=== PATIENT | female | born 1980 | race Caucasian/White ===

== ENCOUNTER 2025-08-30 20:44 | Emergency (ER) | payer BC, SELFPAY ==
[2025-08-30 20:46] VITALS: BP 171/107
[2025-08-30 21:03] LABS: Hematocrit 45.7 % (37.0-47.0); Hemoglobin 15.5 g/dL (12.0-16.0); Mean Corp Hgb Conc. 33.9 g/dL (33.0-37.0); Mean Corpuscular Volume 90.5 fL (81.0-99.0); Nucleated Red Blood Cells % 0 %; Platelet Count 280 10^3/uL (130-400); Red Cell Dist. Width 12.3 % (11.5-14.5)
[2025-08-30 21:17] LABS: Albumin 4.8 g/dl (3.5-5.0)
[2025-08-30 21:27] LABS: ALT (SGPT) 16 U/L (0-35); AST (SGOT) 21 U/L (14-36); Alkaline Phosphatase 56 U/L (38-126); Blood Urea Nitrogen 11 mg/dl (7-17); Calcium 10.0 mg/dl (8.4-10.2); Carbon Dioxide 26 mmol/L (22-30); Chloride 104 mmol/L (98-107); Glucose 87 mg/dl (70-99); Lipase 102 U/L (23-300); Potassium 3.9 mmol/L (3.5-5.1); Sodium 139 mmol/L (135-145); Total Protein 7.4 g/dl (6.3-8.2); eGFR > 60.00
[2025-08-31] VITALS: BP 131/91
[2025-08-31] MEDS: TORADOL 15 MG IV (01:32)
[2025-08-31 01:45] LABS: HCG, Serum Qualitative Screen Negative
--- NOTE | 2025-08-31 01:50 | ED.GENMED ---
Addendum entered and electronically signed by Sumanth Mueller Jr., PA-C 09/02/25 08:24:
Patient's urine culture was reviewed. Case was discussed with urology that recommended outpatient follow-up but not starting antibiotics due to the likelihood that this is a contaminant rather than invasive bacteria. Patient was contacted who is
not having any progressive symptoms or signs of an infection
Original Note:
History of Present Illness
<DO Steph Bradshaw Last Filed: 08/31/25 01:51>
General
Chief Complaint: Abdominal Pain
Time Seen by Provider: 08/31/25 00:37
<Sumanth Mueller Jr., PA-C - Last Filed: 08/31/25 17:32>
General
Source: patient
Exam Limitations: none
Nursing documentation reviewed up to this point in time: agreed with
History of Present Illness
History of Present Illness:
44-year-old female past medical history of hypertension presenting to the emergency department today with concerns of left lower quadrant abdominal pain associated nausea seem to occur prior to arrival. Denies any change in bowel movements or
urination denies any vomiting no fevers.
Past History
<DO Steph Bradshaw Last Filed: 08/31/25 01:51>
Past History
ED Past Medical History: None
ED Past Surgical History: None
Social History
Tobacco: Non-smoker
Alcohol: Occasional
Personal:
Living: with family
Review of Systems
<PRASHANT Henry Jr. Last Filed: 08/31/25 17:32>
Review of Systems
Allergies reviewed?: Yes
All Other Systems: ROS reviewed and negative except as documented in HPI and ROS
Phy Exam
<Sumanth Mueller Jr., PA-C - Last Filed: 08/31/25 17:32>
Physical Exam
Physical Exam:
GENERAL: Alert , in no apparent distress
EYE: pupils equal and reactive
NECK: Supple, no significant adenopathy.
ENT: o/p clr, mmm.
CARDIAC: Regular rate and rhythm .
LUNGS: Clear breath sounds bilaterally, no acute respiratory distress, no wheezes/rales/rhonchi
ABDOMEN: Left lower quadrant abdominal pain otherwise soft abdomen
NEUROLOGICAL: Alert and oriented, no focal neuro deficits
SKIN: Warm and dry, skin intact.
MUSCULOSKELETAL: No edema, well perfused.
PSYCH: Normal and appropriate interaction.
Course
<Naye Joseph, DO - Last Filed: 08/31/25 01:51>
Orders/Labs/Results
Orders:
Orders
08/30/25 20:50
Urinalysis Reflex To Culture Urgent
Date Specimen was Collected: 08/30/25
Time Specimen was Collected: 20:50
US Pelvis W Transvag Combined Urgent
Reason For Exam: pain
08/30/25 20:56
Complete Blood Count/With Diff Urgent
Comprehensive Metabolic Panel Urgent
HCG, Serum Qualitative Screen Urgent
Comment: ADD ON
Lipase Urgent
08/31/25 00:57
CT Abd/Pel (IV only)-DH only Urgent
Comment:
Reason For Exam: llq pain ongoing
08/31/25 00:58
Ketorolac [Toradol] 15 mg IV NOW STA
08/31/25 00:59
Add On- LAB Urgent
Tests Added?: serum hcg qual
08/31/25 03:08
Urine Microscopic Reflex Cult Urgent
Urine Culture Urgent
EITAN Source: U
Specimen Description:
Date Specimen was Collected: 08/30/25
Time Specimen was Collected: 20:50
Abnormal Lab Results
08/30/25 08/31/25
20:56 03:08
Eosinophils % 8.1 H %
(0-6)
Ur Occult Blood Reflex 1+ A
(Negative)
Leukocyte Esterase Rfl 1+ A
(Negative)
Urine Albumin (Reflex) 2+ A
(Neg - Trace)
08/30/25 20:56
08/30/25 20:56
Vital Signs
Initial and Last Documented VS:
Initial Vital Signs
Temp Pulse Resp BP Pulse Ox
97.6 F 86 18 171/107 100
08/30/25 20:46 08/30/25 20:46 08/30/25 20:46 08/30/25 20:46 08/30/25 20:46
Last Documented Vital Signs
Temp Pulse Resp BP Pulse Ox
97.6 F 86 18 130/80 100
08/30/25 20:46 08/30/25 20:46 08/30/25 20:46 08/31/25 04:23 08/31/25 01:51
<Sumanth Mueller Jr., PA-Olman - Last Filed: 08/31/25 17:32>
Orders/Labs/Results
Orders:
Orders
08/30/25 20:50
Urinalysis Reflex To Culture Urgent
Date Specimen was Collected: 08/30/25
Time Specimen was Collected: 20:50
US Pelvis W Transvag Combined Urgent
Reason For Exam: pain
08/30/25 20:56
Complete Blood Count/With Diff Urgent
Comprehensive Metabolic Panel Urgent
HCG, Serum Qualitative Screen Urgent
Comment: ADD ON
Lipase Urgent
08/31/25 00:57
CT Abd/Pel (IV only)-DH only Urgent
Comment:
Reason For Exam: llq pain ongoing
08/31/25 00:58
Ketorolac [Toradol] 15 mg IV NOW STA
08/31/25 00:59
Add On- LAB Urgent
Tests Added?: serum hcg qual
08/31/25 03:08
Urine Microscopic Reflex Cult Urgent
Urine Culture Urgent
EITAN Source: U
Specimen Description:
Date Specimen was Collected: 08/30/25
Time Specimen was Collected: 20:50
Abnormal Lab Results
08/30/25 08/31/25
20:56 03:08
Eosinophils % 8.1 H %
(0-6)
Ur Occult Blood Reflex 1+ A
(Negative)
Leukocyte Esterase Rfl 1+ A
(Negative)
Urine Albumin (Reflex) 2+ A
(Neg - Trace)
08/30/25 20:56
08/30/25 20:56
Vital Signs
Initial and Last Documented VS:
Initial Vital Signs
Temp Pulse Resp BP Pulse Ox
97.6 F 86 18 171/107 100
08/30/25 20:46 08/30/25 20:46 08/30/25 20:46 08/30/25 20:46 08/30/25 20:46
Last Documented Vital Signs
Temp Pulse Resp BP Pulse Ox
97.6 F 86 18 130/80 100
08/30/25 20:46 08/30/25 20:46 08/30/25 20:46 08/31/25 04:23 08/31/25 01:51
<Kp Welch, DO - Last Filed: 08/31/25 03:56>
Orders/Labs/Results
Orders:
Orders
08/30/25 20:50
Urinalysis Reflex To Culture Urgent
Date Specimen was Collected: 08/30/25
Time Specimen was Collected: 20:50
US Pelvis W Transvag Combined Urgent
Reason For Exam: pain
08/30/25 20:56
Complete Blood Count/With Diff Urgent
Comprehensive Metabolic Panel Urgent
HCG, Serum Qualitative Screen Urgent
Comment: ADD ON
Lipase Urgent
08/31/25 00:57
CT Abd/Pel (IV only)-[facility] only Urgent
Comment:
Reason For Exam: llq pain ongoing
08/31/25 00:58
Ketorolac [Toradol] 15 mg IV NOW STA
08/31/25 00:59
Add On- LAB Urgent
Tests Added?: serum hcg qual
08/31/25 03:08
Urine Microscopic Reflex Cult Urgent
Urine Culture Urgent
EITAN Source: U
Specimen Description:
Date Specimen was Collected: 08/30/25
Time Specimen was Collected: 20:50
Abnormal Lab Results
08/30/25 08/31/25
20:56 03:08
Eosinophils % 8.1 H %
(0-6)
Ur Occult Blood Reflex 1+ A
(Negative)
Leukocyte Esterase Rfl 1+ A
(Negative)
Urine Albumin (Reflex) 2+ A
(Neg - Trace)
08/30/25 20:56
08/30/25 20:56
Vital Signs
Initial and Last Documented VS:
Initial Vital Signs
Temp Pulse Resp BP Pulse Ox
97.6 F 86 18 171/107 100
08/30/25 20:46 08/30/25 20:46 08/30/25 20:46 08/30/25 20:46 08/30/25 20:46
Last Documented Vital Signs
Temp Pulse Resp BP Pulse Ox
97.6 F 86 18 130/80 100
08/30/25 20:46 08/30/25 20:46 08/30/25 20:46 08/31/25 04:23 08/31/25 01:51
<Sumanth Mueller Jr., PA-C - Last Filed: 08/31/25 17:32>
MDM/Problems Addressed
MDM/Problems Addressed:
44-year-old female presenting to the emergency department today with concerns of sharp left lower quadrant abdominal pain that occurred prior to arrival. Associated nausea. Here blood pressure elevated otherwise vital signs are normal. Patient
did have reproducible tenderness to the left lower quadrant otherwise soft abdomen. Labs were obtained without acute abnormalities. Initial pelvic ultrasound showing a right sided complex ovarian cyst which does not correlate the patient's symptom
location. She was notified of this and will follow-up.
<Naye Joseph, DO - Last Filed: 08/31/25 01:51>
*Pulse Oximetry
SaO2: 100
Oxygen Mode of Delivery: Room air
<Sumanth Mueller Jr., PA-C - Last Filed: 08/31/25 17:32>
*Pulse Oximetry
Patient hypoxic: no (100)
*Critical Care Note
Total Time (30-74mins, 75-104mins- exclusive of procedures): Not Applicable
ED Attending Note
<Naye Joseph DO - Last Filed: 08/31/25 01:51>
-
Portions of this chart may have been created with voice recognition software.� Occasional wrong word or��sound alike� substitutions may have occurred due to the inherent limitations of voice recognition software.
<Kp Welch DO - Last Filed: 08/31/25 03:56>
ED Attending Note
Patient seen and examined by attending physician: Yes
ED Attending Note:
Note:
CHIEF COMPLAINT(S)
Kidney stone.
HISTORY OF PRESENT ILLNESS
The patient is a 44-year-old female presenting with a diagnosed 5-millimeter kidney stone, currently in the process of passing. The patient reports that her urine appears normal at present, with no signs of infection or the need for antibiotic
treatment. The plan is to monitor for potential complications such as fever, chills, chest pain, shortness of breath, or worsening pain, which would warrant immediate attention.
PHYSICAL EXAM
General: Alert, no acute distress.
Skin: Warm, dry.
Head: Normocephalic, atraumatic.
Neck: Supple, trachea midline.
Eye, Ears, Nose, Mouth, and Throat: Oral mucosa moist.
Cardiovascular: Normal peripheral perfusion, no edema.
Respiratory: Respirations are non-labored.
Gastrointestinal: Abdomen nondistended.
Back: Normal range of motion, normal alignment.
Musculoskeletal: Normal range of motion, normal strength.
Neurological: Alert and oriented to person, place, time, and situation, no focal neurological deficit observed.
Psychiatric: Cooperative, appropriate mood & affect.
PLAN
The patient will be provided with contact information for a urologist in the event that the kidney stone does not pass on its own. The patient was advised to seek immediate care if symptoms such as fever, chills, chest pain, shortness of breath, or
worsened pain occur.
DIFFERENTIAL DIAGNOSIS
The Differential Diagnosis includes, in no particular order and is not limited to:
1. Ureteral stone
2. Urinary tract infection
3. Renal colic
4. Obstructive uropathy
5. Pyelonephritis
6. Abdominal aortic aneurysm
7. Diverticulitis
8. Musculoskeletal back pain
9. Biliary colic
10. Ischemic bowel
Discharge Plan
Departure
Patient Disposition: Home (Routine Discharge)
Date of Disposition: 08/31/25
Time of Disposition: 03:56
Patient with high blood pressure during this ER visit?: No
Condition: Good
Covid-19: Not Applicable
Discharge Problem:
Calculus, ureteral
Instructions: Kidney Stones (DC)
Prescriptions:
New
tamsulosin [Flomax] 0.4 mg capsule
0.4 mg PO DAILY Qty: 7 0RF
ondansetron 4 mg tablet,disintegrating
4 mg PO Q6H PRN (Reason: nausea and vomiting) Qty: 7 0RF
ibuprofen 600 mg tablet
600 mg PO Q8H PRN (Reason: Pain) Qty: 10 0RF
No Action
No Current Medications
ibuprofen 800 MG tablet
800 mg PO Q6HPRN PRN (Reason: pain) Qty: 0 0RF
diazepam 5 MG tablet
5 mg PO TIDPRN PRN (Reason: muscle spasm) Qty: 14 0RF
Referrals:
Taye Waldron MD [Active, Urology] - Follow up in 1 week
UNKNOWN - PT DOES,NOT KNOW [Family Provider]
Activity Restrictions/Additional Instructions:
You came to the emergency department today with concerns of left lower abdominal discomfort. You are found to have a kidney stone that is likely responsible for your symptoms. Please drink plenty of fluids and take the prescribed medications to
help with passage of the stone and follow-up closely with urology. You should be reassessed and discussed your CT findings. Return for any worsening, new or concerning symptoms.
Interventions
Interventions:
*Risk Screen - Suicide Last Done: 08/30/25 20:46
*General Assessment Last Done: 08/31/25 04:24
*Neglect/Abuse Screening Last Done: 08/30/25 20:46
*ED- Fall Risk Assessment Last Done: 08/31/25 04:24
*ED COVID-19 Vaccine History Last Done: 08/31/25 04:24
*ED Influenza Vaccine History Last Done: 08/31/25 04:24
*Nursing Disposition Last Done: 08/31/25 04:24
QF-Zdyejf-Rzossevbcq Assessment Last Done: 08/31/25 01:37
Discharge Date and Time
Discharge Date/Time: 08/31/25 04:26
Print Language: DANISH
[2025-08-31 03:16] LABS: Urine Character Clear (Clear)
[2025-08-31 03:22] LABS: Urine Red Blood Cell 0-2 /HPF (0-2); Urine Squamous Cell 0-2 /LPF (Few)
[2025-08-31 04:23] VITALS: BP 130/80
== END 2025-08-31 04:26 | disposition home or self-care (01) ==
LOC: EMR 20:44
PROVIDERS: Emergency Medicine; EMERGENCY PHYSICIAN Emergency Medicine
DX: N13.2 Hydronephrosis with renal and ureteral calculous obstruction (principal); E27.8 Other specified disorders of adrenal gland; I10 Essential (primary) hypertension; Z90.49 Acquired absence of other specified parts of digestive tract
CPT/HCPCS: 99284; 96374; 74177; 76830; 76856; 80053; 81003; 81015; 83690; 84703; 85025; 87077; 87086; 87147; Q9967

== ENCOUNTER 2025-10-27 06:24 | Day surgery (SDC) | payer BC, SELFPAY ==
[2025-10-27 14:23] VITALS: BMI 22.1
[2025-10-27 14:24] VITALS: BP 129/90
[2025-10-27] MEDS: NORMOSOL-R/PLASMALYTE-A 1000 IV (14:25)
[2025-10-27] MEDS: TRANSDERM-SCOP 1 PATCH TRANSDERM (16:09)
[2025-10-27 19:23] VITALS: BP 123/82; BP 129/90
[2025-10-27 19:30] VITALS: BP 133/82
[2025-10-27 19:45] VITALS: BP 138/79
[2025-10-27 20:00] VITALS: BP 130/91
[2025-10-27 20:15] VITALS: BP 133/76
[2025-10-27] MEDS: ROXICODONE 5 MG PO (20:41)
== END 2025-10-27 21:10 | disposition home or self-care (01) ==
LOC: SDS 06:24
PROVIDERS: ATTENDING PHYSICIAN Specialist
DX: N20.2 Calculus of kidney with calculus of ureter (principal)
CPT/HCPCS: 52356; 74018; 76000; 82365